=== PATIENT | female | born 1930 | race Caucasian/White ===

== ENCOUNTER 2016-06-09 14:16 | Outpatient (CLI) | payer MEDICARE, OTHER ==
[~2016-06-09] VITALS: Ht 151.1 cm; Wt 45.8 kg
[2016-06-09 14:34] VITALS: BP_SYST 146; BP_SYST 150; BP_DIAS 75; BP_DIAS 79
[2016-06-09 16:14] LABS: CALCIUM, SERUM 8.6 mg/dL (8.5-10.1); CREATININE 0.7 mg/dL (0.6-1.3); MAGNESIUM 1.9 mg/dL (1.8-2.4); POTASSIUM 4.1 mmol/L (3.5-5.1)
[2016-06-09 16:24] LABS: EOSINOPHILS # (AUTO) 0.2 /CMM (0.0-0.7); EOSINOPHILS % (AUTO) 1.9 % (0.0-6.0); HEMATOCRIT 42 % (33-45); HEMOGLOBIN 13.5 g/dL (11.5-14.8); LYMPHOCYTES # (AUTO) 1.1 /CMM (0.8-4.8); LYMPHOCYTES % (AUTO) 8.6 % (20.0-44.0); MEAN CORPUSCULAR HEMOGLOBIN 28 PG (26.0-33.0); MEAN CORPUSCULAR HGB CONC 32 g/dl (31.0-36.0); MEAN CORPUSCULAR VOLUME 85 fL (82-100); MONOCYTES # (AUTO) 0.5 /CMM (0.1-1.30); MONOCYTES % (AUTO) 3.7 % (2.0-12.0); NEUTROPHILS # (AUTO) 11.2 /CMM (1.8-8.9); NEUTROPHILS % (AUTO) 85.8 % (43.0-81.0); PLATELET COUNT (AUTO) 341 /CMM (150-450); RDW COEFFICIENT OF VARIATION 13.6 (11.5-15.0); RED BLOOD CELL COUNT(AUTO) 4.91 MIL/uL (4.0-5.2); WHITE BLOOD COUNT (AUTO) 13.1 K/uL (4.3-11.0)
[2016-06-09 18:04] LABS: THYROID STIMULATING HORMONE 2.888 uIU/mL (0.358-3.74)
== END 2016-06-09 23:59 | disposition home or self-care (01) ==
LOC: CSC 14:16
PROVIDERS: ATTEND Internal Medicine
DX: F01.50 Vascular dementia, unspecified severity, without behavioral disturbance, psychotic disturbance, mood disturbance, and anxiety (principal); R42 Dizziness and giddiness; R63.4 Abnormal weight loss; E46 Unspecified protein-calorie malnutrition; E03.9 Hypothyroidism, unspecified; R00.0 Tachycardia, unspecified; H81.09 Meniere's disease, unspecified ear; H91.90 Unspecified hearing loss, unspecified ear
CPT/HCPCS: 36415; 80048-TC; 82310-TC; 83735-TC; 84443-TC; 85025-TC; 97001-TC; G0463

== ENCOUNTER 2016-07-15 14:13 | Outpatient (CLI) | payer MEDICARE, OTHER ==
[~2016-07-15] VITALS: Ht 151.1 cm; Wt 46.3 kg
[2016-07-15 14:25] VITALS: BP_SYST 133; BP_SYST 141; BP_DIAS 78; BP_DIAS 88
[2016-07-15 15:35] LABS: BASOPHILS # (AUTO) 0.1 /CMM (0.0-0.2); BASOPHILS % (AUTO) 0.9 % (0.0-2.0); EOSINOPHILS # (AUTO) 0.2 /CMM (0.0-0.7); EOSINOPHILS % (AUTO) 1.3 % (0.0-6.0); HEMATOCRIT 40 % (33-45); HEMOGLOBIN 12.9 g/dL (11.5-14.8); LYMPHOCYTES # (AUTO) 1.1 /CMM (0.8-4.8); LYMPHOCYTES % (AUTO) 7.1 % (20.0-44.0); MEAN CORPUSCULAR HEMOGLOBIN 27 PG (26.0-33.0); MEAN CORPUSCULAR HGB CONC 32 g/dl (31.0-36.0); MEAN CORPUSCULAR VOLUME 84 fL (82-100); MONOCYTES # (AUTO) 0.7 /CMM (0.1-1.30); MONOCYTES % (AUTO) 4.4 % (2.0-12.0); NEUTROPHILS % (AUTO) 86.3 % (43.0-81.0); PLATELET COUNT (AUTO) 309 /CMM (150-450); RDW COEFFICIENT OF VARIATION 13.7 (11.5-15.0); RED BLOOD CELL COUNT(AUTO) 4.73 MIL/uL (4.0-5.2); WHITE BLOOD COUNT (AUTO) 15.1 K/uL (4.3-11.0)
[2016-07-15] MEDS ORDERED: CHOL100040 PO (15:43)
[2016-07-15 15:55] LABS: CALCIUM, SERUM 8.3 mg/dL (8.5-10.1); CREATININE 0.7 mg/dL (0.6-1.3)
[2016-07-16 14:03] LABS: APPEARANCE,URINE CLEAR (CLEAR); BILIRUBIN,URINE NEGATIVE (NEGATIVE); BLOOD, URINE TRACE Ery/uL (NEGATIVE); COLOR,URINE YELLOW (YELLOW); KETONES,URINE NEGATIVE (NEGATIVE); LEUKOCYTE ESTERASE ,URINE NEGATIVE (NEGATIVE); NITRITE, URINE NEGATIVE (NEGATIVE); PROTEIN,URINE NEGATIVE (NEGATIVE); UGLUCOSE NEGATIVE (NEGATIVE); UROBILINOGEN,URINE 0.2 EU/dL (0.2)
[2016-07-16 14:20] LABS: ADD URINE CULTURE NO; BACTERIA,URINE Rare /HPF (None Seen); SQUAMOUS EPITHELIAL CELL,UR Few /HPF (None Seen); WBC,URINE 0-2 /HPF (0-3)
== END 2016-07-15 23:59 | disposition home or self-care (01) ==
LOC: CSC 14:13
PROVIDERS: ATTEND Internal Medicine
DX: N39.41 Urge incontinence (principal); R29.6 Repeated falls; G30.9 Alzheimer's disease, unspecified; F02.80 Dementia in other diseases classified elsewhere, unspecified severity, without behavioral disturbance, psychotic disturbance, mood disturbance, and anxiety; R00.0 Tachycardia, unspecified; H91.90 Unspecified hearing loss, unspecified ear; E03.9 Hypothyroidism, unspecified; R42 Dizziness and giddiness; M17.0 Bilateral primary osteoarthritis of knee; E86.0 Dehydration
CPT/HCPCS: 36415; 80048; 81001; 85025; 87086; G0463; 81000-TC

== ENCOUNTER 2016-08-05 14:25 | Outpatient (CLI) | payer MEDICARE, OTHER ==
[~2016-08-05] VITALS: Ht 151.1 cm; Wt 44.0 kg
[~2016-08-05 14:25] MED LIST: CHOL100040 PO
[2016-08-05 14:39] VITALS: BP_SYST 144; BP_SYST 145; BP_DIAS 66; BP_DIAS 76
== END 2016-08-05 23:59 | disposition home or self-care (01) ==
LOC: CSC 14:25
PROVIDERS: ATTEND Internal Medicine
DX: E46 Unspecified protein-calorie malnutrition (principal); R63.4 Abnormal weight loss; Z98.42 Cataract extraction status, left eye; Z98.41 Cataract extraction status, right eye; Z85.118 Personal history of other malignant neoplasm of bronchus and lung; F01.50 Vascular dementia, unspecified severity, without behavioral disturbance, psychotic disturbance, mood disturbance, and anxiety; E03.9 Hypothyroidism, unspecified; R42 Dizziness and giddiness; N39.41 Urge incontinence; E86.0 Dehydration; Z91.81 History of falling; D72.829 Elevated white blood cell count, unspecified; Z82.0 Family history of epilepsy and other diseases of the nervous system
CPT/HCPCS: G0463

== ENCOUNTER 2016-08-14 12:07 | Outpatient (CLI) | payer MEDICARE, OTHER ==
[2016-08-14 12:57] LABS: BASOPHILS % (AUTO) 0.3 % (0.0-2.0); EOSINOPHILS # (AUTO) 0.1 /CMM (0.0-0.7); EOSINOPHILS % (AUTO) 0.9 % (0.0-6.0); HEMATOCRIT 44 % (33-45); HEMOGLOBIN 14.1 g/dL (11.5-14.8); LYMPHOCYTES # (AUTO) 0.9 /CMM (0.8-4.8); LYMPHOCYTES % (AUTO) 12.4 % (20.0-44.0); MEAN CORPUSCULAR HEMOGLOBIN 27 PG (26.0-33.0); MEAN CORPUSCULAR HGB CONC 32 g/dl (31.0-36.0); MEAN CORPUSCULAR VOLUME 84 fL (82-100); MONOCYTES # (AUTO) 0.4 /CMM (0.1-1.30); MONOCYTES % (AUTO) 5.9 % (2.0-12.0); NEUTROPHILS % (AUTO) 80.5 % (43.0-81.0); PLATELET COUNT (AUTO) 310 /CMM (150-450); RDW COEFFICIENT OF VARIATION 13.6 (11.5-15.0); RED BLOOD CELL COUNT(AUTO) 5.19 MIL/uL (4.0-5.2); WHITE BLOOD COUNT (AUTO) 7.4 K/uL (4.3-11.0)
[2016-08-14 13:35] LABS: ALBUMIN 3.2 g/dL (3.4-5.0); BILIRUBIN,TOTAL 0.4 mg/dL (0.2-1.0); CALCIUM, SERUM 8.7 mg/dL (8.5-10.1); CREATININE 0.8 mg/dL (0.6-1.3); POTASSIUM 4.4 mmol/L (3.5-5.1); TOTAL PROTEIN, SERUM 7.9 g/dL (6.4-8.2)
[2016-08-14 13:43] LABS: C-REACTIVE PROTEIN 3.1 mg/dL (0.0-0.9); THYROID STIMULATING HORMONE 4.975 uIU/mL (0.358-3.74)
[2016-08-14 14:52] LABS: RHEUMATOID FACTOR SCREEN POSITIVE (NEG)
[2016-08-15 08:20] LABS: T3, FREE 4.9 pg/mL (2.0-4.4)
== END 2016-08-14 23:59 | disposition home or self-care (01) ==
LOC: LAB 12:07
PROVIDERS: ATTEND Internal Medicine Hematology & Oncology
DX: D72.829 Elevated white blood cell count, unspecified (principal); R63.4 Abnormal weight loss; E03.9 Hypothyroidism, unspecified; R05 Cough; M06.9 Rheumatoid arthritis, unspecified
CPT/HCPCS: 36415; 80053-TC; 84439-TC; 84443-TC; 84481; 85025-TC; 86140-TC; 86431-TC

== ENCOUNTER 2017-01-20 12:26 | Inpatient (IN) | payer MEDICARE, OTHER ==
[~2017-01-20] VITALS: Ht 160 cm; Wt 39.0 kg
--- NOTE | 2017-01-20 12:26 | NUR ---
BIBRA 89 FROM HOME C/O R HIP AND SHOULDER PAIN X 3 DAYS, NO RECENT FALL OR TRAUMA REPORTED. NAD NOTED, VSS, RESP EVEN AND UNLABORED, WAITING FOR MD ALVAREZ.
[2017-01-20 14:49] LABS: BASOPHILS # (AUTO) 0.3 /CMM (0.0-0.2); BASOPHILS % (AUTO) 3.1 % (0.0-2.0); EOSINOPHILS % (AUTO) 0.3 % (0.0-6.0); HEMATOCRIT 45 % (33-45); HEMOGLOBIN 14.6 g/dL (11.5-14.8); LYMPHOCYTES # (AUTO) 0.6 /CMM (0.8-4.8); LYMPHOCYTES % (AUTO) 7.6 % (20.0-44.0); MEAN CORPUSCULAR HEMOGLOBIN 26 PG (26.0-33.0); MEAN CORPUSCULAR HGB CONC 32 g/dl (31.0-36.0); MEAN CORPUSCULAR VOLUME 80 fL (82-100); MONOCYTES # (AUTO) 0.4 /CMM (0.1-1.30); MONOCYTES % (AUTO) 5.3 % (2.0-12.0); NEUTROPHILS # (AUTO) 6.9 /CMM (1.8-8.9); NEUTROPHILS % (AUTO) 83.7 % (43.0-81.0); PLATELET COUNT (AUTO) 285 /CMM (150-450); RDW COEFFICIENT OF VARIATION 13.9 (11.5-15.0); RED BLOOD CELL COUNT(AUTO) 5.65 MIL/uL (4.0-5.2); WHITE BLOOD COUNT (AUTO) 8.2 K/uL (4.3-11.0)
[2017-01-20 14:59] LABS: CALCIUM, SERUM 8.5 mg/dL (8.5-10.1); CARBON DIOXIDE 26 mmol/L (21-32); CHLORIDE 104 mmol/L (98-107); CREATININE 0.9 mg/dL (0.6-1.3); GLUCOSE 114 mg/dL (74-106); POTASSIUM 4.4 mmol/L (3.5-5.1); SODIUM SERUM 141 mmol/L (136-145); UREA NITROGEN, BLOOD 15 mg/dL (7-18)
[2017-01-20 15:03] LABS: INR 0.96 (0.87-1.13)
[2017-01-20] MEDS ORDERED: TRAM50TA2 PO (15:18)
[2017-01-20] MEDS ORDERED: THYR90TA PO (15:18)
--- NOTE | 2017-01-20 16:15 | NUR ---
REPORT GIVEN TO MARIA ALEJANDRA GALLAGHER FOR ADMISSION.
[2017-01-20 16:45] VITALS: BP 105/64
--- NOTE | 2017-01-20 16:45 | NUR ---
MS RN OPENING RECEIVED PATIENT A/OX4 FORGETFUL. PATIENT DENIES PAIN AT THIS TIME. DENIES SOB, DIFFICULTY BREATHING AT THIS TIME. EQUAL AND UNLABORED RESPIRATIONS. PATIENT FAMILY AND AT BEDSIDE AND ASSISTING WITH HISTORY PATIENT BECOMES ANXIOUS "EASILY" PER FAMILY. PATIENT APPEARS STABLE AT THIS TIME. DR FELA BURRIS AWARE OF ADMISSION. CALL LIGHT IN REACH, BED LOWERED AND LOCKED, RAILS UPX3 FOR SAFETY AND PATIENT IN POSITION OF COMFORT. WILL ROUND Q2H OR LESS PER NEEDS
--- NOTE | 2017-01-20 16:49 | NUR ---
PATIENT TRANSPORTED TO [facility] FOR ADMISSION VIA STRETCHER. RNMARIA ALEJANDRA TO PROVIDE SEAMUS.
--- NOTE | 2017-01-20 17:30 | NUR ---
MS RN NOTES INCORRECT TIME ON PICTURES. 1630 INCORRECT; CORRECTED TIME 1730
--- NOTE | 2017-01-20 18:20 | NUR ---
MS RN CLOSING ALL NEEDS MET. PATIENT DENIES PAIN AT THIS TIME AND STATES SHE WILL NOTIFY WHEN NEEDING PAIN MEDICATIONS. PATIENT APPEARS STABLE NO CHANGES. CALL LIGHT IN REACH, BED LOWERED AND LOCKED, RAILS UPX3 FOR SAFETY WILL ENDORSE CARE TO RN FOR SEAMUS
[2017-01-20 18:22] LABS: IRON, SERUM 18 ug/dl (50-175); TOTAL IRON BINDING CAPACITY 235 ug/dl (250-450)
--- NOTE | 2017-01-20 19:15 | NUR ---
MS RN NOTES PER FELA BURRIS INSERT STAUFFER CATH FOR PATIENT. PATIENT AWARE AND AGREEABLE. WILL ENDORSE TO RN JONES
--- NOTE | 2017-01-20 19:15 | NUR ---
MS RN NOTES RECEIVED ON BED A/O X4,DAUGHTER AT BEDSIDE,DENIES PAIN AT THE MOMENT,CAME IN DUE TO RIGHT HIP FRACTURE.SCD IN USED FOR DVT PROPHYLAXIS.ANTICOAGULANT HOLD FOR NOW FOR POSSIBLE SURGICAL INTERVENTION.PRESENT IVF INFUSING WELL VIA IV PUMP ON THE RIGHT AC.CALL LIGHT IN REACH,NEEDS ANTICIPATED.
[2017-01-20 20:00] VITALS: BP 102/53
--- NOTE | 2017-01-20 20:00 | NUR ---
MS RN NOTES WILL STAY PER PATIENT REQUEST.PATIENT WITH KNOWN HISTORY OF DEMENTIA.
[2017-01-20 20:06] VITALS: BP 102/53
--- NOTE | 2017-01-20 20:36 | NUR ---
MS RN NOTES MEDICATED WITH ULTRAM 50MG PO PER FAMILY REQUEST BEFORE INSERTING STAUFFER CATH,NOTED AND CARRIED OUT.
--- NOTE | 2017-01-20 21:30 | NUR ---
MS RN NOTES INSERTED STAUFFER CATHETER #16 ASEPTICALLY.PROCEDURE TOLERATED WELL
--- NOTE | 2017-01-20 21:48 | NUR ---
MS RN NOTES SPOKE TO REGARDING ADVANCE DIRECTIVE,VERIFIED,AND HE SAID OK CPR BUT NO INTUBATION
--- NOTE | 2017-01-21 02:00 | NUR ---
MS RN NOTES SOUND ASLEEP,KEPT WARM AND COMFORTABLE.
--- NOTE | 2017-01-21 06:26 | NUR ---
MS RN NOTES SLEPT WELL,PAIN TOLERABLE,IVF INFUSING,STAUFFER IN PLACE,DVT PUMP OFF THIS TIME PER PATIENT REQUEST.IN NO ACUTE DISTRESS.WILL ENDORSE TO DAY NURSE FOR SEAMUS.
[2017-01-21 06:32] LABS: BASOPHILS % (AUTO) 0.7 % (0.0-2.0); EOSINOPHILS # (AUTO) 0.1 /CMM (0.0-0.7); EOSINOPHILS % (AUTO) 3.4 % (0.0-6.0); HEMATOCRIT 37 % (33-45); HEMOGLOBIN 11.8 g/dL (11.5-14.8); LYMPHOCYTES % (AUTO) 21.7 % (20.0-44.0); MEAN CORPUSCULAR HEMOGLOBIN 26 PG (26.0-33.0); MEAN CORPUSCULAR HGB CONC 32 g/dl (31.0-36.0); MEAN CORPUSCULAR VOLUME 82 fL (82-100); MONOCYTES # (AUTO) 0.6 /CMM (0.1-1.30); MONOCYTES % (AUTO) 12.9 % (2.0-12.0); NEUTROPHILS # (AUTO) 2.7 /CMM (1.8-8.9); NEUTROPHILS % (AUTO) 61.3 % (43.0-81.0); PLATELET COUNT (AUTO) 257 /CMM (150-450); RDW COEFFICIENT OF VARIATION 14.6 (11.5-15.0); RED BLOOD CELL COUNT(AUTO) 4.47 MIL/uL (4.0-5.2); WHITE BLOOD COUNT (AUTO) 4.4 K/uL (4.3-11.0)
[2017-01-21 07:03] LABS: CHOLESTEROL 168 mg/dL (<200); HDL CHOLESTEROL 47 mg/dL (40-60); LDL 113 mg/dL (0-99); TRIGLYCERIDES 81 mg/dL (30-150)
[2017-01-21 07:10] LABS: ALANINE AMINOTRANSFERASE 20 U/L (12-78); ALBUMIN 2.1 g/dL (3.4-5.0); ALKALINE PHOSPHATASE 82 U/L (46-116); ASPARTATE AMINOTRANSFERASE 17 U/L (15-37); BILIRUBIN,TOTAL 0.3 mg/dL (0.2-1.0); CARBON DIOXIDE 26 mmol/L (21-32); CHLORIDE 104 mmol/L (98-107); CREATININE 0.6 mg/dL (0.6-1.3); GLUCOSE 88 mg/dL (74-106); MAGNESIUM 1.9 mg/dL (1.8-2.4); POTASSIUM 4.1 mmol/L (3.5-5.1); SODIUM SERUM 137 mmol/L (136-145); TOTAL PROTEIN, SERUM 6.2 g/dL (6.4-8.2); UREA NITROGEN, BLOOD 15 mg/dL (7-18)
--- NOTE | 2017-01-21 07:21 | NUR ---
MS RN OPENING NOTE RECEIVED SBAR REPOT AT THE BEDSIDE. PATIENT IS A/O X4, FORGETFUL OF SPECIFIC DATES. PATIENT IS IN BED AWAKE RESPONSIVE AND COOPERATIVE. BED IS LOCKED, IN LOWEST POSITION, SIDE RAILS UP X2, BED ALARM IS ON. PATIENT IN FOWLERS POSITION. DVT PUMPS ON. IV FLUIDS RUNNING PRESCRIBED. PRESENTS WITH NON-LABORED BREATHING. SPO2 RA 95%. CHEST RISING EQUALLY, BILATERALLY. DENIES PAIN/DISCOMFORT AT THIS TIME. AT THE BEDSIDE. PATIENT REMINDED TO CALL FOR HELP, NOT ATTEMPTING TO GET OUT OF THE BED. EDUCATED/REMINDED HOW TO USE THE CALL LIGHT VIA TEACH BACK METHOD. PATIENT/ VERBALIZED UNDERSTANDING OF THE TEACHING. WILL CONTINUE TO ASSESS/MONITOR THROUGHOUT THE SHIFT.
[2017-01-21 08:00] VITALS: BP 107/56
--- NOTE | 2017-01-21 08:22 | NUR ---
MS RN NOTE CAME TO ADMINISTER PATIENT'S 7:30 MEDICATIONS. THYROID 30MG WAS NOT FOUND IN THE CASSETTE OR IN [facility] CELL. CALLED PHARMACY A ND SPOKE TO CATALINO. WILL ADMINISTER MEDICATION ONCE DELIVERED BY THE PHARMACY.
[2017-01-21 16:00] VITALS: BP 109/60
--- NOTE | 2017-01-21 19:30 | NUR ---
RECEIVED PATIENT IN THE BED, WITH FAMILY AT HER BEDSIDE. PATIENT CALM, NO DISTRESS NOTED PATIENT IS FOR SURGERY TOMORROW. EDUCATION GIVEN, PATIENT IS FORGETFUL AND THERE FOR UNABLE TO SIGN THE CONSENT. IS NOT COMFORTABLE TO SIGN THE CONSENT AT THIS TIME AND WANTS TO SPEAK WITH MD BEFORE SIGNING IT. WILL REINFORCED IT TO THE DAY SHIFT
[2017-01-21 20:00] VITALS: BP 112/60
--- NOTE | 2017-01-21 20:09 | NUR ---
MS RN OPENING NOTE SBAR REPOT AT THE BEDSIDE. ENDORSED TO THE NEXT SHIFT FOF SEAMUS. PATIENT IS A/O X4, FORGETFUL OF SPECIFIC DATES. PATIENT IS IN BED AWAKE RESPONSIVE AND COOPERATIVE. BED IS LOCKED, IN LOWEST POSITION, SIDE RAILS UP X2, BED ALARM IS ON. PATIENT IN FOWLERS POSITION. DVT PUMPS ON. IV FLUIDS RUNNING PRESCRIBED. PRESENTS WITH NON-LABORED BREATHING. SPO2 RA 94%. CHEST RISING EQUALLY, BILATERALLY. FAMILY AT THE BEDSIDE. PATIENT REMINDED TO CALL FOR HELP, NOT ATTEMPTING TO GET OUT OF THE BED.
[2017-01-21 21:00] LABS: APPEARANCE,URINE CLEAR (CLEAR); BILIRUBIN,URINE NEGATIVE (NEGATIVE); BLOOD, URINE 1+ Ery/uL (NEGATIVE); COLOR,URINE YELLOW (YELLOW); KETONES,URINE NEGATIVE (NEGATIVE); LEUKOCYTE ESTERASE ,URINE TRACE (NEGATIVE); NITRITE, URINE POSITIVE (NEGATIVE); PH,URINE 5.5 (5.0-8.0); PROTEIN,URINE NEGATIVE (NEGATIVE); UGLUCOSE NEGATIVE (NEGATIVE); UROBILINOGEN,URINE 0.2 EU/dL (0.2)
[2017-01-21 21:30] LABS: BACTERIA,URINE Many /HPF (None Seen); SQUAMOUS EPITHELIAL CELL,UR Few /HPF (None Seen)
[2017-01-21 21:31] LABS: MUCUS,URINE Few /LPF (None Seen); URINE AMORPHOUS URATE Few /HPF (None Seen)
--- NOTE | 2017-01-21 22:30 | NUR ---
PATIENT C/O RIGHT HIP PAIN - TRAMADOL GIVEN
--- NOTE | 2017-01-21 23:29 | NUR ---
RN NOTES RECEIVED PATIENT FROM AILEEN FRANCOIS. WILL CONTINUE TO MONITOR.
--- NOTE | 2017-01-22 01:00 | NUR ---
RN NOTES PATIENT ENCOURAGED TO TURN AND REPOSITION WITH ASSISTANCE FROM STAFF. PATIENT AND DAUGHTER PREFERRED THAT SHE LAYS SUPINE. EDUCATION GIVEN. PATIENT'S WISHES RESPECTED.
--- NOTE | 2017-01-22 06:43 | NUR ---
RN NOTES PATIENT ASLEEP, EASILY AROUSABLE. RESPIRATIONS EVEN. NO SIGNS OF PAIN NOTED. NEEDS ATTENDED. SAFETY PRECAUTIONS AND COMFORT MEASURES IN PLACE. WILL GIVE REPORT TO DAY SHIFT FOR CONTINUITY OF CARE.
[2017-01-22 07:01] LABS: CALCIUM, SERUM 7.9 mg/dL (8.5-10.1); CARBON DIOXIDE 23 mmol/L (21-32); CHLORIDE 106 mmol/L (98-107); CREATININE 0.6 mg/dL (0.6-1.3); GLUCOSE 126 mg/dL (74-106); MAGNESIUM 1.7 mg/dL (1.8-2.4); PHOSPHORUS 3.3 mg/dL (2.5-4.9); POTASSIUM 4.2 mmol/L (3.5-5.1); SODIUM SERUM 138 mmol/L (136-145); UREA NITROGEN, BLOOD 16 mg/dL (7-18)
--- NOTE | 2017-01-22 07:10 | NUR ---
MS RN OPENING NOTE RECEIVED SBAR REPOT AT THE BEDSIDE. PATIENT IS A/O X4, FORGETFUL OF SPECIFIC DATES. PATIENT IS IN BED AWAKE RESPONSIVE AND COOPERATIVE. BED IS LOCKED, IN LOWEST POSITION, SIDE RAILS UP X3, BED ALARM IS ON. PATIENT IN FOWLERS POSITION. DVT PUMPS ON. IV FLUIDS RUNNING PRESCRIBED. PRESENTS WITH NON-LABORED BREATHING. SPO2 RA 95% ON RA. CHEST RISING EQUALLY, BILATERALLY. DENIES PAIN/DISCOMFORT AT THIS TIME. DAUGHTER AT THE BEDSIDE. PATIENT REMINDED TO CALL FOR HELP, NOT ATTEMPTING TO GET OUT OF THE BED. EDUCATED/REMINDED HOW TO USE THE CALL LIGHT VIA TEACH BACK METHOD. PATIENT/DAUGHTER VERBALIZED UNDERSTANDING OF THE TEACHING. WILL CONTINUE TO ASSESS/MONITOR THROUGHOUT THE SHIFT.
[2017-01-22 07:19] LABS: BASOPHILS % (AUTO) 0.5 % (0.0-2.0); EOSINOPHILS # (AUTO) 0.1 /CMM (0.0-0.7); EOSINOPHILS % (AUTO) 2.6 % (0.0-6.0); HEMATOCRIT 40 % (33-45); HEMOGLOBIN 12.6 g/dL (11.5-14.8); LYMPHOCYTES % (AUTO) 21.5 % (20.0-44.0); MEAN CORPUSCULAR HEMOGLOBIN 26 PG (26.0-33.0); MEAN CORPUSCULAR HGB CONC 32 g/dl (31.0-36.0); MEAN CORPUSCULAR VOLUME 81 fL (82-100); MONOCYTES # (AUTO) 0.5 /CMM (0.1-1.30); MONOCYTES % (AUTO) 11.4 % (2.0-12.0); PLATELET COUNT (AUTO) 266 /CMM (150-450); RDW COEFFICIENT OF VARIATION 14.4 (11.5-15.0); RED BLOOD CELL COUNT(AUTO) 4.91 MIL/uL (4.0-5.2); WHITE BLOOD COUNT (AUTO) 4.7 K/uL (4.3-11.0)
[2017-01-22 08:00] VITALS: BP 111/62
--- NOTE | 2017-01-22 10:30 | NUR ---
MS RN NOTE INFORMED CONSENT OBTAINED BY THE SURGEON. CHECKLIST COMPLETED.
--- NOTE | 2017-01-22 12:12 | NUR ---
MS GALLAGHER OPENING NOTE RECEIVED SBAR REPOT AT THE BEDSIDE. PATIENT IS A/O X4, FORGETFUL OF SPECIFIC DATES. PATIENT IS IN BED AWAKE RESPONSIVE AND COOPERATIVE. BED IS LOCKED, IN LOWEST POSITION, SIDE RAILS UP X3, BED ALARM IS ON. PATIENT IN FOWLERS POSITION. DVT PUMPS ON. IV FLUIDS RUNNING PRESCRIBED. PRESENTS WITH NON-LABORED BREATHING. SPO2 RA 95% ON RA. CHEST RISING EQUALLY, BILATERALLY. DENIES PAIN/DISCOMFORT AT THIS TIME. DAUGHTER AT THE BEDSIDE. PATIENT REMINDED TO CALL FOR HELP, NOT ATTEMPTING TO GET OUT OF THE BED. EDUCATED/REMINDED HOW TO USE THE CALL LIGHT VIA TEACH BACK METHOD. PATIENT/DAUGHTER VERBALIZED UNDERSTANDING OF THE TEACHING. WILL CONTINUE TO ASSESS/MONITOR THROUGHOUT THE SHIFT. Addendum: 01/22/17 at 1215 by ROSE DURAND RN ERROR/REPEATED NOTE
--- NOTE | 2017-01-22 12:15 | NUR ---
MS RN NOTE PATIENT HAS PRESCRIBED MAGNESIUM REPLACEMENT IV. CURRENTLY ANTIBIOTIC RUNNING. UNABLE TO INFUSE MAGNESIUM. PHARMACY NOTIFIED TO CHANGE THE TIME OF MAGNESIUM.
--- NOTE | 2017-01-22 13:17 | NUR ---
MS RN NOTE ASSISTANT CASINO SHIFT MANAGER REPORTED VANCO WAS GIVEN TO PATIENT IN THE OR.
--- NOTE | 2017-01-22 13:35 | NUR ---
MS RN NOTE PATIENT WAS TAKEN TO OR. LEFT THE UNIT VIA BED ACCOMPANIED BY OR NURSE AND TECH VIA BED IN STABLE CONDITION. VS WNL.
[2017-01-22 16:00] VITALS: BP_SYST 117; BP_SYST 145; BP_DIAS 58; BP_DIAS 96
--- NOTE | 2017-01-22 16:25 | NUR ---
MS RN NOTE PATIENT IS BACK FROM SURGERY, STABLE VS WNL.
[2017-01-22 17:40] LABS: BASOPHILS % (AUTO) 0.1 % (0.0-2.0); EOSINOPHILS % (AUTO) 0.3 % (0.0-6.0); HEMATOCRIT 42 % (33-45); LYMPHOCYTES # (AUTO) 0.6 /CMM (0.8-4.8); LYMPHOCYTES % (AUTO) 4.2 % (20.0-44.0); MEAN CORPUSCULAR HEMOGLOBIN 26 PG (26.0-33.0); MEAN CORPUSCULAR HGB CONC 31 g/dl (31.0-36.0); MEAN CORPUSCULAR VOLUME 82 fL (82-100); MONOCYTES # (AUTO) 0.2 /CMM (0.1-1.30); MONOCYTES % (AUTO) 1.7 % (2.0-12.0); NEUTROPHILS # (AUTO) 12.6 /CMM (1.8-8.9); NEUTROPHILS % (AUTO) 93.7 % (43.0-81.0); PLATELET COUNT (AUTO) 303 /CMM (150-450); RDW COEFFICIENT OF VARIATION 14.5 (11.5-15.0); WHITE BLOOD COUNT (AUTO) 13.4 K/uL (4.3-11.0)
[2017-01-22 17:51] LABS: CALCIUM, SERUM 7.6 mg/dL (8.5-10.1); CARBON DIOXIDE 26 mmol/L (21-32); CHLORIDE 106 mmol/L (98-107); CREATININE 0.6 mg/dL (0.6-1.3); GLUCOSE 138 mg/dL (74-106); POTASSIUM 4.1 mmol/L (3.5-5.1); SODIUM SERUM 138 mmol/L (136-145); UREA NITROGEN, BLOOD 12 mg/dL (7-18)
--- NOTE | 2017-01-22 19:00 | NUR ---
MS RN closing NOTE GAVE SBAR REPOT AT THE BEDSIDE. PATIENT IS IN BED AWAKE RESPONSIVE AND COOPERATIVE. BED IS LOCKED, IN LOWEST POSITION, SIDE RAILS UP X3, BED ALARM IS ON. PATIENT IN FOWLERS POSITION. DVT PUMPS ON. WEDGE ON. IV FLUIDS RUNNING PRESCRIBED. PRESENTS WITH NON-LABORED BREATHING. SPO2 100% ON 2L O2. CHEST RISING EQUALLY, BILATERALLY. DAUGHTER AND THE FATHER AT THE BEDSIDE. PATIENT/FAMILY REMINDED TO CALL FOR HELP, NOT ATTEMPTING TO GET OUT OF THE BED. EDUCATED/REMINDED HOW TO USE THE CALL LIGHT VIA TEACH BACK METHOD. PATIENT/FAMILY VERBALIZED UNDERSTANDING OF THE TEACHINGS.
--- NOTE | 2017-01-22 19:50 | NUR ---
MS/RN OPENING NOTES PATIENT IN BED, RESTING COMFORTABLY IN BED, FAMILY AT BED SIDE. PER DAUGHTER SANDY THE OF PATIENT WILL BE W/ PATIENT FOR TONIGHT PATIENT IS ANXIOUS . ABLE TO NOD AND RESPIRATIONS EVEN AND UNLABORED ON 2 L OXYGEN VIA NC. WILL MONITOR FOR ANY S/S OF COMPLICATION. PATIENT REFUSE TO TAKE MEDS BY MOUTH AT THIS TIME WILL MONITOR. HAS MAGNESIUM TO REPLACE DUE TO S/P PROCEDURE THIS PM., ON IV FLUIDS RUNNING AT 75ML/HR. ON R HAND.NO S/S OF INFILTRATION.
[2017-01-22 20:00] VITALS: BP 124/51
--- NOTE | 2017-01-22 22:00 | NUR ---
ms/rn notes patient left for home and will monitor patient
--- NOTE | 2017-01-23 01:30 | NUR ---
ms/rn notes patient awake and provided fluids/pudding. noted grimace and will give tylenol 650 mg po by mouth. will provide care and monitor patient.
--- NOTE | 2017-01-23 04:30 | NUR ---
ms/rn notes observed left hand iv site some redness, removed and monitor for bleeding, cover w/ gauze and tape. LFA site iv insert w/ gauge 22 x2 attempt w/ back flow and iv flushed. patient in comfortable position, informed about iv insertion. cooperative.
--- NOTE | 2017-01-23 06:54 | NUR ---
ms/rn closing notes Patient able to sleep atleast 6 hours.requires frequent monitoring. Attend to patient needs for comfort, pain managment monitoring, provide fluids and snacks, tolerate some pudding and fluids. assist w/ repositon and turn. Dressing dry and intact.Will continue to monitor,New Iv inserted on left forearm gauge 22. on oxygen via nc at 2L. will endorse to am rn for michael.
[2017-01-23 07:16] LABS: BASOPHILS % (AUTO) 0.1 % (0.0-2.0); HEMATOCRIT 37 % (33-45); HEMOGLOBIN 11.7 g/dL (11.5-14.8); LYMPHOCYTES # (AUTO) 0.9 /CMM (0.8-4.8); LYMPHOCYTES % (AUTO) 9.5 % (20.0-44.0); MEAN CORPUSCULAR HEMOGLOBIN 26 PG (26.0-33.0); MEAN CORPUSCULAR HGB CONC 32 g/dl (31.0-36.0); MEAN CORPUSCULAR VOLUME 82 fL (82-100); MONOCYTES # (AUTO) 0.6 /CMM (0.1-1.30); NEUTROPHILS # (AUTO) 7.7 /CMM (1.8-8.9); NEUTROPHILS % (AUTO) 83.4 % (43.0-81.0); PLATELET COUNT (AUTO) 275 /CMM (150-450); RDW COEFFICIENT OF VARIATION 13.9 (11.5-15.0); RED BLOOD CELL COUNT(AUTO) 4.49 MIL/uL (4.0-5.2); WHITE BLOOD COUNT (AUTO) 9.2 K/uL (4.3-11.0)
--- NOTE | 2017-01-23 07:20 | NUR ---
RN OPENING NOTES RECEIVED PATIENT IN BED RESTING. A/O X1-2, CONFUSED, FORGETFUL. NO ACUTE DISTRESS, NO SOB NOTED. DENIES PAIN OR DISCOMFORT AT THE MOMENT. IV SITE INTACT AND PATENT. STAUFFER CATHETER IN PLACE. KEPT PATIENT SAFE AND COMFORTABLE. BED LOCKED, LOWEST POSITION, SIDERAILS UP X2. CALL LIGHT IN REACH. WILL CONTINUE TO MONITOR ACCORDINGLY.
[2017-01-23 07:24] LABS: CALCIUM, SERUM 7.9 mg/dL (8.5-10.1); CARBON DIOXIDE 24 mmol/L (21-32); CHLORIDE 107 mmol/L (98-107); CREATININE 0.6 mg/dL (0.6-1.3); GLUCOSE 100 mg/dL (74-106); MAGNESIUM 2.1 mg/dL (1.8-2.4); PHOSPHORUS 3.3 mg/dL (2.5-4.9); POTASSIUM 4.4 mmol/L (3.5-5.1); SODIUM SERUM 139 mmol/L (136-145); UREA NITROGEN, BLOOD 12 mg/dL (7-18)
[2017-01-23 08:00] VITALS: BP 121/57
--- NOTE | 2017-01-23 13:14 | NUR ---
MS TECHNICAL REP NOTE RECEIVED REPORT FROM AILEEN MIGUEL. PATIENT IS ALERT AND ORIENTED x2, FAMILY AT BEDSIDE. PERIODS OF CONFUSION BUT ABLE TO REORIENT. WILL CONTINUE TO MONITOR
--- NOTE | 2017-01-23 13:14 | NUR ---
MS RN NOTE PER PHARMACY TO IGNORE 750 VANCO DOSE AND TO FOLLOW OTHER SCHEDULED VANCO IV. CONFIRMED WITH RNLAMONT
--- NOTE | 2017-01-23 13:20 | NUR ---
RN NOTES PATIENT COMPLAINING OF CALF/LEG PAIN 5/10 SHARP WHEN DVT PUMP COMPRESSES. ASSESSED PATIENT, LEG IS WARM TO TOUCH BUT NO REDNESS OR SWELLING NOTED. NOTIFIED LOGAN HSU NP AND ORDERED DOPPLER US TO R/O DVT. WILL CONTINUE TO MONITOR ACCORDINGLY.
[2017-01-23 16:00] VITALS: BP 119/59
--- NOTE | 2017-01-23 18:30 | NUR ---
MS RN CLOSING NOTE PATIENT IS ALERT AND ORIENTED x2. PERIODS OF CONFUSION NOTED. ABLE TO REORIENT. CAREGIVER AT BEDSIDE. CALL LIGHT WITHIN REACH AT ALL TIMES. SAFETY MEASURES IMPLEMENTED. ABLE TO COMMUNICATE NEEDS. HAS RIGHT HIP FRACTURE. S/P RIGHT HIP ARTHOPLASTY DONE 01/22/17. ALL DUE MEDICATIONS GIVEN ORDERED BY MD. IV ON LEFT FOREARM INTACT AND PATENT, FLUSHES WELL. IV FLUIDS AT 75 ML/HR. DUPLEX FOR LOWER EXTREMITIES DONE TO RULE OUT DVT CAME BACK NEGATIVE. REGULAR DIET. WILL ENDORSE TO MARSH BUGGY OPERATOR NURSE FOR SEAMUS.
--- NOTE | 2017-01-23 19:39 | NUR ---
MS/RN OPENING NOTES PATIENT IB BED, AWAKE, ALERT. COOPERATIVE TO CARE. RESPIRATIONS EVEN AND UNLABORED. DENIES ANY PAIN. REPORTED NO BM AND WILL MONITOR AND PROVIDE PRN FOR BM MGMT. FAMILY AT BEDSIDE. SKIN WARM TO TOUCH. IV HYDRATION AT 75CC/HR. WILL CONTINUE TO MONITOR AND PROVIDE CARE.
[2017-01-23 20:00] VITALS: BP 143/66
--- NOTE | 2017-01-23 20:21 | NUR ---
MS/RN NOTES PATIENT HAS MILD PAIN ON RIGHT HIP, TYLENOL 650MG PO TO BE GIVEN AND CHECK EFFECTIVENESS
[2017-01-24 04:58] VITALS: BP 143/66
--- NOTE | 2017-01-24 04:59 | NUR ---
MS/RN NOTES RECHECK TEMPERATURE AT 98.7 DEG F
[2017-01-24 06:31] LABS: BASOPHILS % (AUTO) 0.1 % (0.0-2.0); EOSINOPHILS % (AUTO) 0.4 % (0.0-6.0); HEMATOCRIT 37 % (33-45); HEMOGLOBIN 11.9 g/dL (11.5-14.8); LYMPHOCYTES # (AUTO) 0.6 /CMM (0.8-4.8); LYMPHOCYTES % (AUTO) 6.6 % (20.0-44.0); MEAN CORPUSCULAR HEMOGLOBIN 26 PG (26.0-33.0); MEAN CORPUSCULAR HGB CONC 32 g/dl (31.0-36.0); MEAN CORPUSCULAR VOLUME 81 fL (82-100); MONOCYTES # (AUTO) 0.6 /CMM (0.1-1.30); MONOCYTES % (AUTO) 5.9 % (2.0-12.0); NEUTROPHILS # (AUTO) 8.2 /CMM (1.8-8.9); PLATELET COUNT (AUTO) 288 /CMM (150-450); RDW COEFFICIENT OF VARIATION 14.1 (11.5-15.0); RED BLOOD CELL COUNT(AUTO) 4.54 MIL/uL (4.0-5.2); WHITE BLOOD COUNT (AUTO) 9.4 K/uL (4.3-11.0)
--- NOTE | 2017-01-24 06:42 | NUR ---
MS/RN CLOSING NOTES PATIENT ALERT, ORIENTED X3. ABLE TO VERBALIZE NEEDS BUT REQUIRE ASSISTANCE, IV ATB MONITORING FOR ANY S/S OF ADVERSE EFFECT, ATTEND/MONITORED AT ALL TIMES
[2017-01-24 07:05] LABS: CALCIUM, SERUM 7.7 mg/dL (8.5-10.1); CARBON DIOXIDE 27 mmol/L (21-32); CHLORIDE 107 mmol/L (98-107); CREATININE 0.5 mg/dL (0.6-1.3); GLUCOSE 107 mg/dL (74-106); MAGNESIUM 1.7 mg/dL (1.8-2.4); PHOSPHORUS 2.9 mg/dL (2.5-4.9); POTASSIUM 3.9 mmol/L (3.5-5.1); SODIUM SERUM 142 mmol/L (136-145); UREA NITROGEN, BLOOD 10 mg/dL (7-18)
[2017-01-24 08:00] VITALS: BP 141/60
--- NOTE | 2017-01-24 09:55 | NUR ---
RN NOTES PER PHARMACY, FELA, TO IGNORE 750 VANCO DOSE AND TO FOLLOW OTHER SCHEDULED VANCO IV.
--- NOTE | 2017-01-24 11:00 | NUR ---
RN NOTES DR GARCIA ON BEDSIDE TALKING TO PATIENT. PER DR GARCIA, OK TO D/C STAUFFER CATHETER.
[2017-01-24 16:00] VITALS: BP 116/61
--- NOTE | 2017-01-24 19:00 | NUR ---
RN NOTES NO CHANGE IN PATIENT'S CONDITION. NO ACUTE DISTRESS, NO SOB NOTED. ALL NEEDS ATTENDED AND PROVIDED. BED IN LOW POSITION, LOCKED, SIDERAILS UPX2. CALL LIGHT IN REACH. AWAITING FOR DISCHARGE. ENDORSED TO NIGHT RN FOR SEAMUS.
[2017-01-24 20:00] VITALS: BP 128/65
--- NOTE | 2017-01-24 20:11 | NUR ---
RN NOTES RECIEVED REPORT FROM KEE GALLAGHER, PATIENT SEEN ALERT ORIENTED, NOT IN DISTRESS.
--- NOTE | 2017-01-25 04:26 | NUR ---
hourly roundings done, patient confused, oriented to name. fall and safety precautions observed and instituted.
--- NOTE | 2017-01-25 07:20 | NUR ---
RN OPENING NOTES RECEIVED PATIENT IN BED RESTING. A/O X1-2, CONFUSED, FORGETFUL. NO ACUTE DISTRESS, NO SOB NOTED. DENIES PAIN OR DISCOMFORT AT THE MOMENT. IV SITE INTACT AND PATENT. KEPT PATIENT SAFE AND COMFORTABLE. BED LOCKED, LOWEST POSITION, SIDERAILS UP X2. CALL LIGHT IN REACH. WILL CONTINUE TO MONITOR ACCORDINGLY.
[2017-01-25 08:00] VITALS: BP 116/73
--- NOTE | 2017-01-25 12:45 | NUR ---
RN NOTES CALLED IN [facility], SPOKE WITH AILEEN MARCUM, FOR REPORT. DISCHARGE INSTRUCTIONS GIVEN.
[2017-01-25 13:00] VITALS: BP 119/73
--- NOTE | 2017-01-25 13:30 | NUR ---
RN NOTES DISCHARGE PATIENT IN STABLE CONDITION ACCOMPANIED BY FIRST DYER AND . DISCHARGE TEACHING/INSTRUCTIONS GIVEN TO , VERBALIZED UNDERSTANDING. IV SITE D/C, NO COMPLICATIONS NOTED.
== END 2017-01-25 13:22 | DRG 469 ==
LOC: ER 12:27 → MED 16:10
PROVIDERS: ADMIT Nurse Practitioner Acute Care; ATTEND Nurse Practitioner Acute Care
PROC: 0SRR0JZ Replacement of Right Hip Joint, Femoral Surface with Synthetic Substitute, Open Approach (ICD-10-PCS; principal; 2017-01-22 14:31)
DX: M84.459A Pathological fracture, hip, unspecified, initial encounter for fracture (principal); E43 Unspecified severe protein-calorie malnutrition; G30.9 Alzheimer's disease, unspecified; N39.0 Urinary tract infection, site not specified; E88.09 Other disorders of plasma-protein metabolism, not elsewhere classified; F02.80 Dementia in other diseases classified elsewhere, unspecified severity, without behavioral disturbance, psychotic disturbance, mood disturbance, and anxiety; Z68.1 Body mass index [BMI] 19.9 or less, adult; E03.9 Hypothyroidism, unspecified; E83.42 Hypomagnesemia; M24.411 Recurrent dislocation, right shoulder
CPT/HCPCS: 36415; 71010-TC; 72170-TC; 73030-TC; 73502; 73562; 80048-TC; 80053-TC; 80061-TC; 80202-TC; 81000-TC; 83540-TC; 83735-TC; 84100-TC; 84443-TC; 85025-TC; 85730-TC; 86850-TC; 87081-TC; 87086-TC; 88305-TC; 88311-TC; 93307-TC; 93970-TC; 97110-TC; 97116-TC; 97530-TC; A4216; A4217; A4606; A6209; A6402; J1100; J1956; J2250; J2270; J2405; J2704; J3010; J3370; J3475; J3490; J7030; J7040; J7060; Z7610

== ENCOUNTER 2017-02-25 16:54 | Emergency (ER) | payer MEDICARE, OTHER ==
[~2017-02-25] VITALS: Ht 152.4 cm; Wt 41.7 kg
[~2017-02-25 16:54] MED LIST changes: -CHOL100040 PO; +THYR90TA PO; +TRAM50TA2 PO
--- NOTE | 2017-02-25 16:57 | NUR ---
PT BIB AND CAREGIVER. NAUSEA AND VOMITING THIS MORNING. 2 EPISODES. DENIES NAUSEA AND VOMITING AT THIS TIME. GOWNED AND PLACED ON MONITOR. AWAITING MD ALVAREZ.
--- NOTE | 2017-02-25 17:43 | NUR ---
DR RICHARDS AT BEDSIDE FOR EVAL.
--- NOTE | 2017-02-25 18:00 | NUR ---
LEATHER SPLITTER AT BEDSIDE FOR BLOOD DRAW.
[2017-02-25 18:06] LABS: MONOCYTES # (AUTO) 0.5 /CMM (0.1-1.30)
[2017-02-25 18:11] LABS: BASOPHILS # (AUTO) 0.2 /CMM (0.0-0.2); BASOPHILS % (AUTO) 2.2 % (0.0-2.0); EOSINOPHILS # (AUTO) 0.1 /CMM (0.0-0.7); EOSINOPHILS % (AUTO) 0.6 % (0.0-6.0); HEMATOCRIT 38 % (33-45); HEMOGLOBIN 12.1 g/dL (11.5-14.8); LYMPHOCYTES # (AUTO) 0.7 /CMM (0.8-4.8); LYMPHOCYTES % (AUTO) 6.4 % (20.0-44.0); MEAN CORPUSCULAR HEMOGLOBIN 26 PG (26.0-33.0); MEAN CORPUSCULAR HGB CONC 32 g/dl (31.0-36.0); MEAN CORPUSCULAR VOLUME 80 fL (82-100); MONOCYTES % (AUTO) 4.1 % (2.0-12.0); NEUTROPHILS # (AUTO) 9.8 /CMM (1.8-8.9); NEUTROPHILS % (AUTO) 86.7 % (43.0-81.0); PLATELET COUNT (AUTO) 226 /CMM (150-450); RDW COEFFICIENT OF VARIATION 15.9 (11.5-15.0); WHITE BLOOD COUNT (AUTO) 11.3 K/uL (4.3-11.0)
[2017-02-25 18:16] LABS: CALCIUM, SERUM 8.5 mg/dL (8.5-10.1); CARBON DIOXIDE 25 mmol/L (21-32); CHLORIDE 107 mmol/L (98-107); CREATININE 0.6 mg/dL (0.6-1.3); GLUCOSE 90 mg/dL (74-106); POTASSIUM 4.1 mmol/L (3.5-5.1); SODIUM SERUM 140 mmol/L (136-145); UREA NITROGEN, BLOOD 20 mg/dL (7-18)
[2017-02-25 18:26] LABS: ALANINE AMINOTRANSFERASE 106 U/L (12-78); ALBUMIN 2.8 g/dL (3.4-5.0); ALKALINE PHOSPHATASE 150 U/L (46-116); ASPARTATE AMINOTRANSFERASE 29 U/L (15-37); BILIRUBIN,DIRECT 0.1 mg/dL (0.0-0.2); BILIRUBIN,TOTAL 0.3 mg/dL (0.2-1.0); TOTAL PROTEIN, SERUM 7.2 g/dL (6.4-8.2)
[2017-02-25 18:28] LABS: TROPONIN I 0.019 ng/mL (0.00-0.056)
--- NOTE | 2017-02-25 19:04 | NUR ---
U/S TECH AT BEDSIDE FOR GALLBLADDER ULTRASOUND.
--- NOTE | 2017-02-25 20:15 | NUR ---
Patient discharged to home in stable condition. Written and verbal after care instructions given. Patient verbalizes understanding of instruction.
[2017-02-25 20:16] VITALS: BP 105/58
== END 2017-02-25 20:17 | disposition home or self-care (01) ==
LOC: ER 16:55
DX: R11.2 Nausea with vomiting, unspecified (principal); M06.9 Rheumatoid arthritis, unspecified; Z88.0 Allergy status to penicillin
CPT/HCPCS: 36415; 76705; 80048; 80076; 84484; 85025; 93005; 99285; A4606; Z7610